=== PATIENT | female | born 1970 | race Caucasian/White ===

== ENCOUNTER 2016-11-22 13:45 | Emergency (ER) | payer MEDICAID, OTHER ==
[~2016-11-22] VITALS: Ht 162.6 cm; Wt 87.0 kg
[~2016-11-22 13:45] MED LIST: NO HOME MEDS; [UNRECOGNIZED DRUG - REMARK]
[2016-11-22 13:50] VITALS: Ht 162.6 cm; Wt 87.0 kg
--- NOTE | 2016-11-22 16:20 | RADRPT ---
PROCEDURE: CT brain without contrast CLINICAL INDICATION: Left facial pain, numbness, headache, nausea, dizziness TECHNIQUE: CT of the brain without contrast was performed on a multidetector CT scanner, with multi planar reformats. One or more of the following dose reduction techniques were used: Automated expos ure control, adjustment in mA and / or kV according to patient size, use of iterative reconstructive technique. CTDIvol = 45 mGy; DLP = 720 mGy-cm. COMPARISON: None available FINDINGS: No acute intracranial hemorrhage is identified. No extra-axial fluid collection is seen. There is no mass effect. No midline shift is identified. Ventricles - sulci are within normal limits for size and configuration. The density of the brain is within normal limits. Johnson-white differentiation is preserved. Osseous structures are unremarkable. Mastoid air cells and imaged paranasal sinuses grossly clear. IMPRESSION: No evidence of acute intracranial pathology. RPTAT: VV .Davidson Barber MD, MD Date Time Electronically viewed and signed by .Davidson Barber MD, on 11/22/2016 16:20 .O/
[2016-11-22] MEDS ORDERED: HYDR-906 PO (16:31)
[2016-11-22] MEDS ORDERED: IBUP-1542 PO (16:31)
--- NOTE | 2016-11-22 16:37 | ERD ---
ER Documentation Chief Complaint Date/Time DATE: 11/22/16 TIME: 16:34 Chief Complaint left facial pain x 1 week HPI This patient is a 38-year-old female who has had a left-sided headache and facial pain for the past week. She went to an urgent care and anterior primary care doctor today who told her to most likely trigeminal neuralgia but recommend she come into the emergency room to get a CT scan to make sure is nothing intracranially. She has had no visual changes. No vomiting. No trauma. No fever. No dizziness. She has not taken any medications for this. Pain is 8 out of 10 and is pulsating. She has also had an earache but has been seen at the urgent care in by her primary care doctor and was told she has no infection. ROS All systems reviewed and are negative except as per history of present illness. Medications Home Meds Active Scripts Hydrocodone/Acetaminophen ([place] 5-325 Tablet) 1 Each Tablet, 1 EACH PO Q6, #20 TAB Prov:LAUREN CARO PA-C 11/22/16 Ibuprofen* (Ibuprofen*) 600 Mg Tablet, 600 MG PO Q6, #30 TAB Prov:LAUREN CARO PA-C 11/22/16 Reported Medications [Marlo Pino Unk Name] No Conflict Check 05/19/13 [No Home Meds] No Conflict Check 10/31/09 Allergies Allergies: Coded Allergies: latex (Verified Allergy, Severe, RASH, 05/19/13) Penicillins (Verified Allergy, Unknown, 05/19/13) aspirin (Verified Allergy, Unknown, 05/19/13) PMhx/Soc History of Surgery: Yes (HERNIA REPAIR, KNEE, TUBAL LIGATION, MARIA ELENA, TUMOR REMOVED R BREAST) Anesthesia Reaction: No Hx Neurological Disorder: No Hx Respiratory Disorders: No Hx Cardiac Disorders: No Hx Psychiatric Problems: No Hx Miscellaneous Medical Probl: Yes (HERNIA) Hx Alcohol Use: No Hx Substance Use: No Hx Tobacco Use: No Smoking Status: Never smoker FmHx Family History: No diabetes Physical Exam Vitals Vital Signs Date Time Temp Pulse Resp B/P Pulse Ox O2 Delivery O2 Flow Rate FiO2 11/22/16 13:50 98.2 85 18 133/75 99 Physical Exam INITIAL VITAL SIGNS: Reviewed by me GENERAL: Awake, alert and oriented x 4, well appearing, nontoxic, speaking in full sentences. No acute distress HEAD: Atraumatic EYES: EOMI. PERRL. EAR: No tenderness over the mastoids bilaterally. No exudates in the canals. TMs nonerythematous. NOSE: Normal nose. THROAT: No tonilar erythema or edema. No exudates. Uvula midline. No kissing tonsils. NECK: Supple. No masses. Full range of motion. No meningismus. No midline tenderness. RESPIRATORY: Clear to auscultation bilaterally. Symmetric chest wall rise. No wheezing or rales. No accessory muscle use. CV: Regular rate and rhythm. No murmurs, rubs, or gallops. NEUROLOGIC: Normal mental status and speech. Face is symmetric. Moves all extremities equally. Motor and sensory distally intact. Normal coordination. Ambulates with a strong steady gait. [id number] within normal limits, gateman strength 5 out of 5 bilaterally, rapid alternating movements are within normal limits Procedures/MDM Patient presents with right-sided facial pain and headache. The differential diagnosis includes but is not limited to subdural hematoma, epidural hematoma, intracerebral hemorrhage, occult trauma, CVA, meningitis, encephalitis, hypertension, tension, migraine, cluster, cervical spine disease, and others. Patients is alert, oriented, well appearing, and in no distress with normal vital signs. There is no fever, tachycardia, or tachypnea. Her neurological examination is normal. CT scan is unremarkable. This is most likely trigeminal neuralgia. She was discharged with ibuprofen and [place] for pain control as well as copy of her radiology reports that she can follow with primary care. Patient counseled regarding my diagnostic impression and care plan. Prior to discharge all questions answered. Pt agrees with treatment plan and understands strict return precautions. Pt is instructed to follow up with primary care provider within 24-48 hours. Precautionary instructions provided including instructions to return to the ER if not improving or for any worsening or changing symptoms or concerns. Departure Diagnosis: Primary Impression: Trigeminal neuralgia Condition: Stable Patient Instructions: Trigeminal Neuralgia Additional Instructions: Call your primary care doctor TOMORROW for an appointment during the next 1-2 days.See the doctor sooner or return here if your condition worsens before your appointment time. LAUREN CARO PA-C Nov 22, 2016 16:37
== END 2016-11-22 17:30 | disposition home or self-care (01) ==
LOC: FTE 13:45
DX: G50.0 Trigeminal neuralgia (principal)
CPT/HCPCS: 70450; Z7502

== ENCOUNTER 2016-12-09 09:12 | Emergency (ER) | payer OTHER ==
[~2016-12-09] VITALS: Ht 162.6 cm; Wt 88.5 kg
[~2016-12-09 09:12] MED LIST changes: +ACET500T98; +HYDR-906 PO; +IBUP-1542 PO; +MEDR10TA2
[2016-12-09 09:21] VITALS: Ht 162.6 cm; Wt 88.5 kg
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
--- NOTE | 2016-12-09 10:19 | RADRPT ---
PROCEDURE: XR Chest. CLINICAL INDICATION: Chest pain TECHNIQUE: A single portable view of the chest was obtained. COMPARISON: 06/04/2007 FINDINGS: The aorta is tortuous and atherosclerotic. The cardiomediastinal silhouette is otherwise within nor mal limits. The lungs and pleural spaces are clear. The soft tissues and osseous structures demons trate benign age related senescent changes. IMPRESSION: No acute cardiopulmonary disease. RPTAT: HPNM Physician Herman Date Time Electronically viewed and signed by Martinez Pedraza Physician on 12/09/2016 10:18 /
[2016-12-09] MEDS ORDERED: FLUORESCEIN STRIP BOTH EYES ONE (10:30)
[2016-12-09] MEDS ORDERED: TETRACAINE 0.5% 4 ML OPH BOTH EYES ONE (10:30)
[2016-12-09 11:09] LABS: ABNORMAL IP MESSAGE 1; HEMATOCRIT 36.1 % (37.0-47.0); HEMOGLOBIN 10.7 g/dl (12.0-16.0); MEAN CORPUSCULAR HEMOGLOBIN 22.6 pg (29.0-33.0); MEAN CORPUSCULAR HGB CONC 29.6 g/dl (32.0-37.0); MEAN CORPUSCULAR VOLUME 76.3 fl (82.0-101.0); MEAN PLATELET VOLUME 8.6 fl (7.4-10.4); PLATELET COUNT 327 10^3/UL (140-415); RED BLOOD COUNT 4.73 10^6/ul (4.20-5.40); RED CELL DISTRIBUTION WIDTH 16.1 % (11.5-14.5); WHITE BLOOD COUNT 7.9 10^3/ul (4.8-10.8)
[2016-12-09 11:11] LABS: POSITIVE DIFF @See below
[2016-12-09 11:21] LABS: ALBUMIN/GLOBULIN RATIO 1.33; BILIRUBIN,INDIRECT 1.1 mg/dl (0-1.1); BILIRUBIN,TOTAL 1.1 mg/dl (0.2-1.3); CALCIUM 8.6 mg/dl (8.4-10.2); CREATININE 0.6 mg/dl (0.44-1.00); POTASSIUM 3.8 mmol/L (3.5-5.1)
[2016-12-09 11:34] LABS: PROTIME 13.2 Sec (12.2-14.2)
[2016-12-09 11:35] LABS: PARTIAL THROMBOPLASTIN TIME 30.4 Sec (25.0-35.0)
[2016-12-09 11:52] LABS: ANISOCYTOSIS 3+ (0-0); EOSINOPHILS % (M) 28 % (0-7); HYPOCHROMASIA 2+ (0-0); METAMYELOCYTES %M 1 % (0-0); MICROCYTOSIS 3+ (0-0); MONOCYTES % (M) 2 % (0-11); PLATELET ESTIMATE NORMAL; POIKILOCYTOSIS 1+ (0-0); POLYCHROMASIA 3+ (0-0)
[2016-12-09] MEDS ORDERED: IOHEXOL 300MG/ML 150 ML BTL ONE (12:21)
[2016-12-09] MEDS ORDERED: SOD CHLORIDE 0.9% 100 ML ONE (12:21)
--- NOTE | 2016-12-09 13:11 | RADRPT ---
PROCEDURE: CT of the orbits with contrast CLINICAL INDICATION: Pain with eye movement. TECHNIQUE: CT of the orbits was performed following the intravenous contrast administration of 100 c c of Omnipaque-300 contrast. Coronal and sagittal re-formations were provided. The administered rad iation dose was CTDI vol = 53.11 mGy, DLP = 657.32 mGy-cm. One or more of the following dose reduct ion techniques were used: Automated exposure control, Adjustment of the mA and/or kV according to pa tient size, or Use of iterative reconstruction technique. COMPARISON: There are no similar studies submitted for comparison. FINDINGS: There is no acute fracture. There is no evidence of subcutaneous air periosteal abscess. The bilateral globes are intact. There is no orbital hematoma. The bilateral optic nerves are normal in size. The bilateral extraocular muscles are within normal limits. No orbital mass is identified. There is near complete bilateral frontal, near complete bilateral ethmoid, complete left maxillary, mild right maxillary, and mild bilateral sphenoid sinus mucosal thickening. There is probably under lying inspissated secretions. There is a small right maxillary sinus air fluid level suggesting acu te sinusitis. There is a 3 mm dorsally oriented wide neck vascular protrusion of the right supraclinoid carotid ar sharon most compatible with an aneurysm (image 38 series 601). No destructive osseous lesion is identified. IMPRESSION: 1. No evidence of subcutaneous or periosteal abscess. 2. The bilateral globes are intact. 3. No orbital mass. 4. There is a 3 mm dorsally oriented wide neck vascular protrusion of the right supraclinoid caroti d artery most compatible with an aneurysm. CTA of the head as well as Neurointerventional/neurosurgi amirah evaluation is recommended. 5. Pansinus mucosal thickening as detailed above. There is a small right maxillary sinus air fluid level suggesting acute sinusitis. Further findings as detailed above. RPTAT: AA .Edison Rutledge MD, Date Time Electronically viewed and signed by .Edison Rutledge MD, MD on 12/09/2016 13:11 .F/
--- NOTE | 2016-12-09 15:26 | EN ---
Date/Time of Note Date/Time of Note DATE: 12/09/16 TIME: 15:24 ER Progress Note I was notified about this patient having pain towards her right and left eye and pressure. Previous physician before me had instructed our physician promotions assistant sales marketing to order a CT of the orbits with contrast. CT orbits does demonstrate a supraclinoid carotid artery aneurysm. I have contacted Dr. clarke at [facility] and he accepts the transfer. He states that he will evaluate the patient when they arrived in the ER. I instructed the patient will be transferred and they are okay with her plan of care. CT ORBIT: 1. No evidence of subcutaneous or periosteal abscess. 2. The bilateral globes are intact. 3. No orbital mass. 4. There is a 3 mm dorsally oriented wide neck vascular protrusion of the right supraclinoid carotid artery most compatible with an aneurysm. CTA of the head as well as Neurointerventional/neurosurgical evaluation is recommended. 5. Pansinus mucosal thickening as detailed above. There is a small right maxillary sinus air fluid level suggesting acute sinusitis. Critical Care: Excluding all billable procedures Time: 32 minutes Treatments/Evaluations: Close monitoring and treatment of unstable vital signs, cardiorespiratory, and neurologic status, while maintaining tight balance of fluid, respiratory, and cardiac interventions, multiple bedside evaluations, multiple consultations. CINDY MENDOZA DO Dec 09, 2016 15:26
[2016-12-09] MEDS ORDERED: morphine 2 MG INJ IV ONE (16:30)
[2016-12-09] MEDS ORDERED: ONDANSETRON 4 MG INJ IV STA (16:43)
[2016-12-09] MEDS ORDERED: IBUP800T25 PO (17:48)
[2016-12-09] MEDS ORDERED: AZIT250T6 PO (17:48)
[2016-12-09] MEDS ORDERED: GUAI100S PO (17:48)
[2016-12-09] MEDS ORDERED: CETI-240 PO (17:48)
[2016-12-09] MEDS ORDERED: PROM5SYR2 PO (17:48)
[2016-12-09] MEDS ORDERED: CIPR500S2 PO (17:48)
[2016-12-09] MEDS ORDERED: ACETAMINOPHEN 325 MG TAB PO ONE (18:00)
[2016-12-09 18:55] VITALS: BP 101/61; PULSE 70; RESP 18; TEMP 98.1
== END 2016-12-09 18:55 | disposition short-term general hospital (02) ==
LOC: FTE 09:12
DX: H57.12 Ocular pain, left eye (principal); I72.0 Aneurysm of carotid artery; R40.2142 Coma scale, eyes open, spontaneous, at arrival to emergency department; R40.2252 Coma scale, best verbal response, oriented, at arrival to emergency department; R40.2362 Coma scale, best motor response, obeys commands, at arrival to emergency department; R07.9 Chest pain, unspecified; Z91.040 Latex allergy status
CPT/HCPCS: 36415; 70480; 71020; 80053; 84484; 85025; 85610; 85730; 87040; 93005; 96374; 96375; J2405; Q9967; Z7502; Z7610; J2270

== ENCOUNTER 2017-02-27 18:38 | Emergency (ER) | payer OTHER ==
[~2017-02-27] VITALS: Ht 167.6 cm; Wt 94.4 kg
[~2017-02-27 18:38] MED LIST changes: -ACET500T98; +AZIT250T6 PO; +CETI-240 PO; +CIPR500S2 PO; +GUAI100S PO; +IBUP800T25 PO; -MEDR10TA2; +PROM5SYR2 PO
[2017-02-27 19:04] VITALS: Ht 167.6 cm; Wt 94.4 kg
--- NOTE | 2017-02-27 22:36 | RADRPT ---
PROCEDURE: CT Abdomen and pelvis without contrast. CLINICAL INDICATION: Abdominal pain. TECHNIQUE: CT scan of the abdomen and pelvis was performed on a multi-detector high-resolution CT scanner. Contiguous axial images were obtained from the lung bases to the ischial tuberosities wit hout intravenous contrast. Coronal and sagittal reformatted images were also obtained. Images were reviewed on the PACS workstation. One or more of the following dose reduction techniques were used: - Automated exposure control. - Adjustment of the mA and/or kV according to patient size. - Use of iterative reconstruction technique. Exam CTD/vol = 22.39 mGy. Total exam DLP = 1242.36 mGy-cm. COMPARISON: 08/23/2014. FINDINGS: Evaluation of the lung bases demonstrates no pleural or parenchymal disease. Abdomen: The liver is normal in size. There is no focal mass or dilatation of the biliary tree. T he patient is status post cholecystectomy. The spleen, pancreas and bilateral adrenal glands are wi thin normal limits. Bilateral kidneys are normal in size with no contour deforming mass identified. There is no radiopaque renal or ureteral calculus identified. There is no hydronephrosis or hydro ureter. There is no retroperitoneal adenopathy. The abdominal aorta is of normal caliber. There is prior ventral hernia repair. There is no bowel obstruction or free air. A normal appendix is identified. There are few scattered sigmoid diverticuli without evidence of diverticulitis. Th ere is no ascites. Pelvis: The bladder is unremarkable. The uterus and adnexa are within normal limits. There is no significant pelvic adenopathy or free fluid. Evaluation of the osseous structures demonstrates no suspicious lytic or blastic lesion. IMPRESSION: No acute abnormality identified within the abdomen and pelvis. Prior ventral hernia repair. Status post cholecystectomy. Few scattered sigmoid diverticuli without evidence of diverticulitis. .Epi Kilgore MD, MD Date Time Electronically viewed and signed by .Epi Kilgore MD, MD on 02/27/2017 22:36 .T/
[2017-02-27] MEDS ORDERED: SIME180C36 PO (22:41)
[2017-02-27] MEDS ORDERED: FAMO-96 PO (22:42)
--- NOTE | 2017-02-27 23:17 | ERD ---
ER Documentation Chief Complaint Chief Complaint bib self, cc: abdominal pain and bloating x 1 month HPI This is a 46-year-old female presents to the ER with multiple complaints. Patient states over the last month she has been feeling very bloated. She also complains of midabdominal pain which is sharp and she describes it as a burning cooling sensation. Patient denies any nausea vomiting or diarrhea. Patient is also complaining of feeling tired and dizzy. Patient denies any fevers or chills. She denies any urinary frequency or dysuria. She denies any chest pain shortness of breath. Patient states that over the last few weeks she has been noticing that she has been gaining a lot of weight, however is not eating more food. ROS 12 point review of systems was done, all negative except per HPI. Medications Home Meds Active Scripts Famotidine* (Pepcid*) 20 Mg Tablet, 20 MG PO BID for 4 Days, TAB Prov:DANY REYES 02/27/17 Simethicone (Simethicone) 180 Mg Capsule, 360 MG PO BID for 5 Days, CAP Prov:DANY REYES 02/27/17 Hydrocodone/Acetaminophen ([place] 5-325 Tablet) 1 Each Tablet, 1 EACH PO Q6, #20 TAB Prov:LAUREN CARO PA-C 11/22/16 Ibuprofen* (Ibuprofen*) 600 Mg Tablet, 600 MG PO Q6, #30 TAB Prov:LAUREN CARO PA-C 11/22/16 Reported Medications Cetirizine Hcl* (Cetirizine Hcl*) 10 Mg Tablet, 10 MG PO DAILY, #30 TAB 12/09/16 Guaifenesin (Tussin Dm) 100 Mg/5 Ml Syrup, 1 TSP PO QID 12/09/16 Promethazine HCl/Codeine (Prometh-Codein 6.25-10 mg/5 ml) 5 Ml Syrup, 5 ML PO TID 12/09/16 Azithromycin* (Azithromycin*) 250 Mg Tablet, 250 MG PO DAILY, #4 TAB 12/09/16 Ibuprofen* (Ibuprofen*) 800 Mg Tab, 800 MG PO TID, TAB 12/09/16 Ciprofloxacin (Ciprofloxacin) 500 Mg/5 Ml Leslie.mc.rec, 500 MG PO BID, #14 TAB 12/09/16 [Musle Elaxer Unk Name] No Conflict Check 05/19/13 [No Home Meds] No Conflict Check 10/31/09 Allergies Allergies: Coded Allergies: latex (Verified Allergy, Severe, RASH, 05/19/13) Penicillins (Verified Allergy, Unknown, 05/19/13) aspirin (Verified Allergy, Unknown, 05/19/13) PMhx/Soc History of Surgery: Yes (HERNIA REPAIR, KNEE, TUBAL LIGATION, MARIA ELENA, TUMOR REMOVED R BREAST) Anesthesia Reaction: No Hx Neurological Disorder: No Hx Respiratory Disorders: No Hx Cardiac Disorders: No Hx Psychiatric Problems: No Hx Miscellaneous Medical Probl: Yes (HERNIA) Hx Alcohol Use: No Hx Substance Use: No Hx Tobacco Use: No Smoking Status: Never smoker Physical Exam Vitals Vital Signs Date Time Temp Pulse Resp B/P Pulse Ox O2 Delivery O2 Flow Rate FiO2 02/27/17 19:04 98.5 92 18 157/90 100 Physical Exam GENERAL: The patient is well developed and appropriate for usual state of health , in no apparent distress. HEENT: Atraumatic. Conjunctivae are pink. Pupils equal, round, and reactive to light. Extraocular muscles are grossly intact. Bilateral tympanic membranes are clear with no evidence of erythema, effusion or dulling of the light reflex. The oropharynx is clear with no erythema or exudates. NECK: C-spine is soft and supple. There is no cervical lymphadenopathy. CHEST: Clear to auscultation bilaterally. There are no rales, wheezes or rhonchi. HEART: Regular rate and rhythm. No murmurs, clicks, rubs or gallops. ABDOMEN: Soft, nontender and nondistended. Good bowel sounds. No rebound or guarding. No gross peritonitis. No gross organomegaly or masses. No Richards sign or McBurney point tenderness. BACK: No midline or flank tenderness. EXTREMITIES: Equal pulses bilaterally. There is no peripheral clubbing, cyanosis or edema. No focal swelling or erythema. Full range of motion. Grossly neurovascularly intact. NEURO: Alert and oriented. Cranial nerves II through XII are intact. Motor strength in all 4 extremities with 5/5 strength. Sensation grossly intact. Normal speech and gait. SKIN: There is no apparent rash or petechia. The skin is warm and dry. Result Diagram: 02/27/17220302/27/172203 Results 24 hrs Laboratory Tests Test 02/27/17:30 02/27/17 22:04 Urine Color YELLOW Urine Clarity CLOUDY Urine pH 7.0 Urine Specific [place] 1.018 Urine Ketones NEGATIVEmg/dL Urine Nitrite NEGATIVEmg/dL Urine Bilirubin NEGATIVEmg/dL Urine Urobilinogen NEGATIVEmg/dL Urine Leukocyte Esterase NEGATIVELeu/ul Urine Microscopic RBC 1/HPF Urine Microscopic WBC 1/HPF Urine Squamous Epithelial Cells FEW/HPF Urine Amorphous Crystals FEW/HPF Urine Mucus FEW/HPF Urine Hemoglobin NEGATIVEmg/dL Urine Glucose NEGATIVEmg/dL Urine Total Protein NEGATIVEmg/dl White Blood Count 6.510^3/ul Red Blood Count 4.4110^6/ul Hemoglobin 10.1g/dl Hematocrit 33.1% Mean Corpuscular Volume 75.1fl Mean Corpuscular Hemoglobin 22.9pg Mean Corpuscular Hemoglobin Concent 30.5g/dl Red Cell Distribution Width 17.1% Platelet Count 08569^3/UL Mean Platelet Volume 8.5fl Neutrophils % 54.9% Lymphocytes % 32.6% Monocytes % 6.2% Eosinophils % 5.2% Basophils % 0.9% Nucleated Red Blood Cells % 0.0/100WBC Neutrophils # 3.610^3/ul Lymphocytes # 2.110^3/ul Monocytes # 0.410^3/ul Eosinophils # 0.310^3/ul Basophils # 0.110^3/ul Nucleated Red Blood Cells # 0.010^3/ul Sodium Level 141mmol/L Potassium Level 4.3mmol/L Chloride Level 107mmol/L Carbon Dioxide Level 26mmol/L Anion Gap 12 Blood Urea Nitrogen 12mg/dl Creatinine 0.49mg/dl Glucose Level 88mg/dl Calcium Level 9.4mg/dl Total Bilirubin 0.8mg/dl Direct Bilirubin 0.00mg/dl Indirect Bilirubin 0.8mg/dl Aspartate Amino Transf (AST/SGOT) 20IU/L Alanine Aminotransferase (ALT/SGPT) 28IU/L Alkaline Phosphatase 84IU/L Troponin I < 0.012ng/ml Total Protein 7.3g/dl Albumin 3.9g/dl Globulin 3.40g/dl Albumin/Globulin Ratio 1.14 Lipase 143U/L Thyroid Stimulating Hormone (TSH) 11.300MIU/L Procedures/MDM EKG was done [address] elevation or T-wave inversion. This EKG was read by Dr. Galicia This is a 38-year-old female presents here with multiple complaints. At this time suspicion for acute abdomen is low. Patient's abdominal examination is completely benign. She is afebrile and extremely well-appearing. Aggressive patient's fatigue and weight gain, it may be related to patient's hypothyroidism as her TSH is 11. Suspicion for for Myxedema coma islow. Patient has had these symptoms for over a month now, she was treated with simethicone and with famotidine. Please follow-up with her primary care doctor within 1-2 days return to ER sooner if symptoms worsen. My medical decision making sure with the patient she understands and agrees with plan. Departure Diagnosis: Primary Impression: Bloating Additional Impression: Hypothyroid Condition: Stable Patient Instructions: Abdominal Pain, Unknown Cause, (Female) Additional Instructions: Call your primary care doctor TOMORROW for an appointment during the next 1-2 days.See the doctor sooner or return here if your condition worsens before your appointment time. DANY REYES Feb 27, 2017 23:17
[2017-02-28 00:27] VITALS: BP 100/58; PULSE 80; RESP 20; TEMP 98.8
== END 2017-02-28 00:20 | disposition home or self-care (01) ==
LOC: FTE 18:38
DX: E03.9 Hypothyroidism, unspecified (principal); R07.9 Chest pain, unspecified; Z91.040 Latex allergy status
CPT/HCPCS: 36415; 74176; 80053; 81001; 83690; 84443; 84484; 85025; Z7502

== ENCOUNTER 2017-05-30 16:48 | Emergency (ER) | END 2017-05-31 05:30 | disposition home or self-care (01) ==

== ENCOUNTER 2017-08-14 00:08 | Emergency (ER) | END 2017-08-14 04:31 | disposition home or self-care (01) ==

== ENCOUNTER 2018-07-04 13:27 | Inpatient (IN) | payer OTHER ==
[~2018-07-04] VITALS: Ht 172.7 cm; Wt 95.2 kg
[~2018-07-04 13:27] MED LIST changes: +ALBU18HF INHALATION; +ALBU2.5V3 NEB; -AZIT250T6 PO; -CETI-240 PO; -CIPR500S2 PO; +FER325 PO; -GUAI100S PO; +HYDR-843 PO; -HYDR-906 PO; -IBUP-1542 PO; +IBUP-1545 PO; -IBUP800T25 PO; +LEVO25TA PO; +LORA0.5T PO; +MULT1TAB54 PO; -NO HOME MEDS; -PROM5SYR2 PO; +SIMV20TA PO; +TRAM50TA2 PO; -[UNRECOGNIZED DRUG - REMARK]
[2018-07-04] MEDS ORDERED: FERR325T5 PO (14:25)
[2018-07-04] MEDS ORDERED: OMEG-135 PO (14:26)
[2018-07-04] MEDS ORDERED: FENO145T37 PO (14:27)
[2018-07-04] MEDS ORDERED: OMEG1CAP30 PO (14:27)
[2018-07-04] MEDS ORDERED: TOPI100T11 PO (14:27)
[2018-07-04] MEDS ORDERED: ACETAMINOPHEN 325 MG TAB PO PRN (16:30)
[2018-07-04] MEDS ORDERED: ONDANSETRON 4 MG INJ IV PRN (16:30)
[2018-07-04] MEDS ORDERED: CLOPIDOGREL 75 MG TAB PO ONE (16:30)
[2018-07-04] MEDS ORDERED: NACL 0.9% 3 ML SYG IV SCH (17:00)
--- NOTE | 2018-07-04 17:51 | ERD ---
ER Documentation Chief Complaint Chief Complaint WEAKNESS ; TROUBLED TALKING; NO FACAIL DROOP; NO NUMBNESS HPI Patient is a 48-year-old female with seizures who presents with weakness. Please note the history and physical exam is limited secondary to the patient being nonverbal at this time. The patient has had weakness and difficulty speaking per the daughter. It started a few days ago. She was seen by Dr. Fletcher for evaluation and was sent to the emergency department. She has a history of "mini strokes" per the daughter. Upon review of old medical records the patient has multiple visits for various complaints. She has had no treatment as of yet. ROS All systems reviewed and are negative except as per history of present illness. Medications Home Meds Active Scripts Levothyroxine Sodium* (Synthroid*) 25 Mcg Tablet, 25 MCG PO BEFORE BREAKFAST, #30 TAB Prov:ADAL PARDO DO 05/31/17 Reported Medications Topiramate* (Topiramate*) 100 Mg Tablet, 100 MG PO BID, TAB 07/04/18 Phyllis-3 Fatty Acids/Fish Oil (Phyllis 3 Fish Oil Softgel) 1 Each Capsule.dr, 2 EACH PO BID 07/04/18 Fenofibrate Nanocrystallized* (Fenofibrate*) 145 Mg Tablet, 145 MG PO DAILY, TAB 07/04/18 Ferrous Sulfate (Ferrous Sulfate) 325 Mg Tablet.dr, 325 MG PO DAILY 07/04/18 Simvastatin* (Zocor*) 20 Mg Tablet, 20 MG PO QHS, #30 TAB 05/31/17 Lorazepam* (Lorazepam*) 0.5 Mg Tablet, 0.5 MG PO HS PRN for ANXIETY, TAB 05/31/17 Discontinued Reported Medications Albuterol Sulfate* (Ventolin HFA*) 18 Gm Hfa.aer.ad, 2 PUFF INHALATION Q4H, #1 INHALER 05/31/17 Albuterol Sulfate* (Albuterol Sulfate* Neb) 0.083%-3 Ml Neb, 1.25 MG NEB TID PRN for WHEEZING AND SOB, #30 VIAL 05/31/17 Hydroxyzine Hcl* (Hydroxyzine Hcl*) 25 Mg Tablet, 25 MG PO BID PRN for ITCHING, #30 TAB 05/31/17 Multivitamin with Iron (Daily Jj with Iron) 1 Each Tablet, 1 EACH PO, TAB 05/31/17 Ibuprofen* (Ibuprofen*) 800 Mg Tab, 800 MG PO TID, TAB 12/09/16 Discontinued Scripts Tramadol HCl (Tramadol HCl) 50 Mg Tablet, 50 MG PO Q4 PRN for PAIN, #20 TAB Prov:REYMUNDO MANSFIELD 08/14/17 Allergies Allergies: Coded Allergies: latex (Verified Allergy, Severe, RASH, 05/19/13) Penicillins (Verified Allergy, Unknown, 05/19/13) aspirin (Verified Allergy, Unknown, 05/19/13) PMhx/Soc History of Surgery: Yes (jorge, R wrist, R knee, hernia) Anesthesia Reaction: No Hx Neurological Disorder: Yes (brain aneurysm) Hx Respiratory Disorders: Yes (asthma) Hx Cardiac Disorders: No Hx Psychiatric Problems: No Hx Miscellaneous Medical Probl: Yes (HERNIA) Hx Alcohol Use: No Hx Substance Use: No Hx Tobacco Use: No Smoking Status: Never smoker FmHx Family History: No diabetes Physical Exam Vitals Vital Signs Date Temp Pulse Resp B/P (MAP) Pulse Ox O2 O2 Flow FiO2 Time Delivery Rate 07/04/18 99.3 58 18 105/62 100 Room Air 15:37 (76) 07/04/18 Nasal 2 14:14 Cannula 07/04/18 99.3 67 19 125/71 100 13:33 (89) Physical Exam Const: No acute distress Head: Atraumatic Eyes: Normal Conjunctiva ENT: Normal External Ears, Nose and Mouth. Neck: Full range of motion. No meningismus. Resp: Clear to auscultation bilaterally Cardio: Regular rate and rhythm, no murmurs Abd: Soft, non tender, non distended. Normal bowel sounds Skin: No petechiae or rashes Back: No midline or flank tenderness Ext: No cyanosis, or edema Neur: Awake, aphasia at this time, diffuse weakness of the upper and lower extremities but not one side more than the other, no obvious facial droop Result Diagram: 07/04/18 1405 07/04/18 1405 Results 24 hrs Laboratory Tests Test 07/04/18 13:55 07/04/18 14:00 07/04/18 14:05 Urine Color YELLOW Urine Clarity CLOUDY Urine pH 8.0 Urine Specific [place] 1.012 Urine Ketones NEGATIVE mg/dL Urine Nitrite NEGATIVE mg/dL Urine Bilirubin NEGATIVE mg/dL Urine Urobilinogen NEGATIVE mg/dL Urine Leukocyte Esterase NEGATIVE Amena/ul Urine Microscopic RBC 6 /HPF Urine Microscopic WBC 0 /HPF Urine Squamous Epithelial Cells FEW /HPF Urine Amorphous Crystals MODERATE /HPF Urine Mucus FEW /HPF Urine Hemoglobin NEGATIVE mg/dL Urine Glucose NEGATIVE mg/dL Urine Total Protein NEGATIVE mg/dl Urine Opiates Screen Negative Urine Barbiturates Negative Urine Amphetamines Screen Negative Urine Benzodiazepines Screen Negative Urine Cocaine Screen Negative Urine Cannabinoids Negative POC Beta HCG, Qualitative NEGATIVE White Blood Count 5.5 10^3/ul Red Blood Count 4.50 10^6/ul Hemoglobin 11.5 g/dl Hematocrit 36.9 % Mean Corpuscular Volume 82.0 fl Mean Corpuscular Hemoglobin 25.6 pg Mean Corpuscular 31.2 g/dl Hemoglobin Concent Red Cell Distribution Width 21.0 % Platelet Count 318 10^3/UL Mean Platelet Volume 8.9 fl Immature Granulocytes % 0.200 % Neutrophils % 57.1 % Lymphocytes % 31.1 % Monocytes % 7.6 % Eosinophils % 2.9 % Basophils % 1.1 % Nucleated Red Blood Cells % 0.0 /100WBC Immature Granulocytes # 0.010 10^3/ul Neutrophils # 3.1 10^3/ul Lymphocytes # 1.7 10^3/ul Monocytes # 0.4 10^3/ul Eosinophils # 0.2 10^3/ul Basophils # 0.1 10^3/ul Nucleated Red Blood Cells # 0.0 10^3/ul Prothrombin Time 13.1 Sec Prothrombin Time Ratio 1.0 INR International 0.98 Normalized Ratio Activated Partial Thromboplast 34.5 Sec Time Sodium Level 143 mmol/L Potassium Level 3.9 mmol/L Chloride Level 112 mmol/L Carbon Dioxide Level 23 mmol/L Anion Gap 8 Blood Urea Nitrogen 10 mg/dl Creatinine 0.66 mg/dl Est Glomerular Filtrat > 60 mL/min Rate mL/min Glucose Level 90 mg/dl Hemoglobin A1c 5.1 % Calcium Level 9.5 mg/dl Troponin I < 0.012 ng/ml Triglycerides Level 101 mg/dl Cholesterol Level 117 mg/dl LDL Cholesterol, Calculated 45 mg/dl HDL Cholesterol 52 mg/dl Cholesterol/HDL Ratio 2.2 RATIO Procedures/MDM CT brain read by radiology. Chest x-ray read by radiology. EKG read by me: Rate/Rhythm: Regular rate and rhythm at a normal rate Intervals: Normal Impression: No evidence of ischemia or arrhythmia Patient is a 48-year-old female who presents with a aphasia and concern for stroke. She is outside the window for TPA or mechanical retrieval as the onset was a few days ago. She is allergic to aspirin so was given Plavix when she passed a swallow evaluation. The patient will be admitted to the care of Dr. Duval given her insurance. She will be admitted to a telemetry inpatient bed for further stroke workup. I doubt intracranial mass or hemorrhage. Departure Diagnosis: Primary Impression: Stroke CVA mechanism: unspecified Qualified Codes: I63.9 - Cerebral infarction, unspecified Additional Impression: Acute weakness Condition: SHANEKA Morales MD Jul 04, 2018 17:51
[2018-07-04 17:52] VITALS: Ht 172.7 cm; Wt 95.2 kg
[2018-07-04] MEDS ORDERED: LORAZEPAM 0.5 MG TAB PO PRN (18:00)
[2018-07-04] MEDS ORDERED: ZOLPIDEM 5 MG TAB PO PRN (18:00)
[2018-07-04 20:00] VITALS: BP 118/58; PULSE 55; PULSE 58; RESP 16
[2018-07-04] MEDS: TOPIRAMATE 100 MG TAB PO SCH (22:47)
[2018-07-04] MEDS: ATORVASTATIN 10 MG TAB PO SCH (22:47)
[2018-07-05] VITALS (12 sets, daily range): BP systolic 91–121; BP diastolic 53–62; PULSE 57–69; RESP 16–20
[2018-07-05] MEDS: LEVOTHYROXINE 25 MCG TAB PO SCH (06:38)
--- NOTE | 2018-07-05 09:19 | PDOCDIS ---
Discharge Instructions CONDITION [id number] Patient Condition: [id number] Good HOME CARE INSTRUCTIONS: [id number] Diet Instructions: [id number] FOLLOW UP/APPOINTMENTS Follow-up Plan pcp [address] Mullins 1 week DARIA ALY MD Jul 05, 2018 09:19
[2018-07-05] MEDS ORDERED: INFLUENZA VIRUS VACCINE 0.5 ML (DISPENSING) IM* ONE (10:00)
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
[2018-07-05] MEDS: TOPIRAMATE 100 MG TAB PO SCH ×2 (10:58→20:37)
[2018-07-05] MEDS: FENOFIBRATE 145 MG TAB PO SCH (10:58)
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
[2018-07-05] MEDS: ATORVASTATIN 10 MG TAB PO SCH (20:37)
[2018-07-06] VITALS (8 sets, daily range): BP systolic 97–120; BP diastolic 51–63; PULSE 56–76; RESP 18–20
[2018-07-06] MEDS: LEVOTHYROXINE 25 MCG TAB PO SCH (06:04)
--- NOTE | 2018-07-06 07:11 | EEG ---
EEG NOTE Report Details DATE OF TEST: 07/05/18 HISTORY: The patient is a 48-year-old F who presents with dysphasia. This EEG is requested to evaluate for seizures. SEDATION: None. CONDITIONS OF RECORDING: This EEG was recorded digitally on the [employer] machine, using the International 10-20 System of electrodes plus anterior temporals and [place]z. STATES SAMPLED: Wakefulness and drowsiness. FINDINGS: During wakefulness, there is a 9 Hz posterior dominant rhythm, which attenuates normally with eye opening. There is a normal cofsjxge-ub-wlystkbxd frequency-amplitude gradient. The remainder of the awake background is normal. Photic stimulation does not elicit any definite driving responses or epileptiform discharges. Hyperventilation was not performed. The patient became drowsy but did not pass into sleep. No asymmetries, focal abnormalities or epileptiform discharges were seen. Incidentally, the single-channel laboratory monitor did not reveal any obvious cardiac arrhythmia. IMPRESSION: Normal electroencephalogram during wakefulness and drowsiness. RAVINDRA PENA Jul 06, 2018 07:11
[2018-07-06] MEDS: FENOFIBRATE 145 MG TAB PO SCH (08:15)
[2018-07-06] MEDS: TOPIRAMATE 100 MG TAB PO SCH (08:15)
[2018-07-06] MEDS ORDERED: HYDROCODONE/APAP (5/325) TAB PO PRN (08:30)
[2018-07-06] MEDS ORDERED: ONDANSETRON 4 MG INJ IV PRN (08:30)
--- NOTE | 2018-07-06 09:15 | CONS ---
Assessment/Plan Assessment/Plan Hospital Course 48 F w/ reported Hx of TBI c/b epilepsy...who presents for evaluation of persistent dysphasia and generalized weakness. The clinical picture suggests a decompensated psychiatric illness. MRI brain is reassuringly negative for acute intracranial pathology... Complex partial seizure is unlikely; EEG was normal. P: OK to continue Topamax per ops for now Ativan iv prn prolonged seizure or cluster PT/OT/ST as necessary Other management and supportive care per primary Will follow clinically Consultation Date/Type/Reason Admit Date/Time Jul 04, 2018 at 16:16 Type of Consult Neurology Reason for Consultation dysarthria; eval for stroke Requesting Provider: DARIA ALY MD Date/Time of Note DATE: 07/06/18 TIME: 09:15 24 HR Interval Summary Free Text/Dictation Continues acute care. S/p EEG. Exam Vital Signs Vitals Vital Signs Date Temp Pulse Resp B/P (MAP) Pulse Ox O2 O2 Flow FiO2 Time Delivery Rate 07/06/18 98.5 61 20 97/54 (68) 96 Room Air 07:41 07/04/18 2 14:14 Intake and Output 07/05/18 07/05/18 07/06/18 1515:00 23:00 07:00 IntakeIntake Total 250 ml 240 ml BalanceBalance 250 ml 240 ml Exam Exam PE: Gen Appearance: No Apparent Distress HEENT: Normocephalic Cardiovascular: Regular rate Lungs: Clear bilaterally Abdomen: Soft Extremities: Dry NE: The patient was alert and oriented. Speech hypophonic and dysfluent. The pt had difficulty with short term recall and word finding. Fund of knowledge was normal. Pupils were equal and reactive to light. There was no afferent pupillary defect. Visual junior were normal. Funduscopic examination was limited. Extra-ocular movements were full. Ptosis was absent. There was no nystagmus. Facial sensation was normal. Face was symmetric with normal strength. Hearing was intact. Palate movements were normal. Neck strength was normal. There was normal tongue bulk and speed of movement. Tone was normal. Muscle bulk was normal. I did not see fasciculations. Arms and legs were weak on the L Vibration sensation and sensation to light touch was diminished on the L. Temperature and pinprick sensation was normal. Rapid alternating movements were normal. There was no dysmetria. There was no intention tremor. Gait was deferred due to bedrest. Arm and leg reflexes were 2+ and symmetric. Dye's sign was absent. Plantar responses were flexor. KULDEEP FITCH NP Jul 06, 2018 09:15 RAVINDRA PENA Jul 07, 2018 07:01
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
== END 2018-07-06 19:28 | DRG 880 ==
LOC: E/R 13:27 → TEL 16:16
PROVIDERS: ADMIT Internal Medicine; ATTEND Internal Medicine
DX: F41.9 Anxiety disorder, unspecified (principal); G40.909 Epilepsy, unspecified, not intractable, without status epilepticus; E03.9 Hypothyroidism, unspecified; E78.5 Hyperlipidemia, unspecified; R47.89 Other speech disturbances; Z87.820 Personal history of traumatic brain injury
CPT/HCPCS: 36415; 70450; 70551; 71045; 80048; 80061; 80307; 81001; 81025; 83036; 84484; 85025; 85610; 85730; 90686; 92507; 92523; 92526; 92610; 93005; 93880; 95819; 97116; 97162; 97530

== ENCOUNTER 2018-09-03 15:37 | Emergency (ER) | payer OTHER ==
[~2018-09-03] VITALS: Wt 89.0 kg
[~2018-09-03 15:37] MED LIST changes: -ALBU18HF INHALATION; -ALBU2.5V3 NEB; +FENO145T37 PO; -FER325 PO; +FERR325T5 PO; -HYDR-843 PO; -IBUP-1545 PO; -MULT1TAB54 PO; +OMEG1CAP30 PO; +TOPI100T11 PO; -TRAM50TA2 PO
[2018-09-03] MEDS ORDERED: DIPHENHYDRAMINE 50 MG INJ IV STA (18:39)
[2018-09-03] MEDS ORDERED: SOD CHLORIDE 0.9% 1,000 ML IV STA (18:39)
[2018-09-03] MEDS ORDERED: PROCHLORPERAZINE 10 MG INJ IV STA (18:39)
--- NOTE | 2018-09-03 19:08 | ERD ---
ER Documentation Chief Complaint Chief Complaint LEFT SIDE LOU, SPEECH HPI This is a 48-year-old female who presents with family member. The patient has a history of traumatic brain injury with residual cognitive and speech deficits. For the past 6 months the patient is having difficulty speaking where she provides staccato sentences. Patient has almost daily headaches that have been unchanged over the last 6 months. The patient was seen here in June and had MRI imaging because of the speech issues. MRI was reviewed and shows no acute process. She does note a history of aneurysm but denies any sudden onset of headache, no thunderclap headache. No focal neurologic deficits. Patient states that her eyes felt puffy and blurred vision bilaterally. She went to an urgent care and they sent her to the emergency room. Her headache is bandlike, bilateral and similar to headaches in the past. Patient states that the du ration of headache and intensity is slightly worse than usual. She follows with a neurologist but has not seen that provider in some time. ROS All systems reviewed and are negative except as per history of present illness. Medications Home Meds Active Scripts Prkgihzpll-Ykbatdhmirddi-Ioladxkv* (Fioricet*) 50-300-40 Mg Capsule, 1 CAP PO Q6 PRN for HEADACHE, #20 CAP Prov:SHASHI HO MD 09/03/18 Levothyroxine Sodium* (Synthroid*) 25 Mcg Tablet, 25 MCG PO BEFORE BREAKFAST, #30 TAB Prov:ADAL PARDO DO 05/31/17 Reported Medications Topiramate* (Topiramate*) 100 Mg Tablet, 100 MG PO BID, TAB 07/04/18 [place]-3 Fatty Acids/Fish Oil ([place] 3 Fish Oil Softgel) 1 Each Capsule.dr, 2 EACH PO BID 07/04/18 Fenofibrate Nanocrystallized* (Fenofibrate*) 145 Mg Tablet, 145 MG PO DAILY, TAB 07/04/18 Ferrous Sulfate (Ferrous Sulfate) 325 Mg Tablet.dr, 325 MG PO DAILY 07/04/18 Simvastatin* (Zocor*) 20 Mg Tablet, 20 MG PO QHS, #30 TAB 05/31/17 Lorazepam* (Lorazepam*) 0.5 Mg Tablet, 0.5 MG PO HS PRN for ANXIETY, TAB 05/31/17 Allergies Allergies: Coded Allergies: latex (Verified Allergy, Severe, RASH, 09/03/18) Penicillins (Verified Allergy, Unknown, 09/03/18) aspirin (Verified Allergy, Unknown, 09/03/18) PMhx/Soc History of Surgery: Yes (carpal tunnel on L hand, hernia repair) Anesthesia Reaction: No Hx Neurological Disorder: No (seizure, aneurysm) Hx Respiratory Disorders: No Hx Cardiac Disorders: No Hx Psychiatric Problems: No Hx Miscellaneous Medical Probl: Yes (See technical record) Hx Alcohol Use: No Hx Substance Use: No Hx Tobacco Use: No FmHx Family History: No diabetes Physical Exam Vitals Vital Signs Date Temp Pulse Resp B/P (MAP) Pulse Ox O2 O2 Flow FiO2 Time Delivery Rate 09/03/18 76 16 121/70 100 Room Air 19:24 (87) 09/03/18 98.1 86 18 137/64 99 15:46 (88) Physical Exam General: Tearful, anxious, staccato speech Head: Normocephalic, atraumatic. Eyes: Pupils equally reactive, EOM intact, no ptosis, no field cuts ENT: Moist mucous membranes Neck: Supple, no lymphadenopathy Respiratory: Lungs clear bilaterally, no distress Cardiovascular: RRR, no murmurs, rubs, or gallops Abdominal: Soft, non-tender, non-distended, no peritoneal signs : Deferred MSK: No edema, no unilateral swelling, 5/5 strength Neurologic: Limited exam given poor participation but no focal deficits, stacca to speech, no new focal deficits per patient report Skin: No rash Psych: Normal mood Result Diagram: 09/03/18191209/03/181912 Results 24 hrs Laboratory Tests Test 09/03/18 19:13 White Blood Count 5.6 10^3/ul Red Blood Count 4.44 10^6/ul Hemoglobin 12.4 g/dl Hematocrit 38.8 % Mean Corpuscular Volume 87.4 fl Mean Corpuscular Hemoglobin 27.9 pg Mean Corpuscular Hemoglobin Concent 32.0 g/dl Red Cell Distribution Width 15.9 % Platelet Count 340 10^3/UL Mean Platelet Volume 9.1 fl Immature Granulocytes % 0.200 % Neutrophils % 53.5 % Lymphocytes % 31.5 % Monocytes % 7.3 % Eosinophils % 5.9 % Basophils % 1.6 % Nucleated Red Blood Cells % 0.0 /100WBC Immature Granulocytes # 0.010 10^3/ul Neutrophils # 3.0 10^3/ul Lymphocytes # 1.8 10^3/ul Monocytes # 0.4 10^3/ul Eosinophils # 0.3 10^3/ul Basophils # 0.1 10^3/ul Nucleated Red Blood Cells # 0.0 10^3/ul Sodium Level 145 mmol/L Potassium Level 3.6 mmol/L Chloride Level 116 mmol/L Carbon Dioxide Level 19 mmol/L Anion Gap 10 Blood Urea Nitrogen 16 mg/dl Creatinine 0.77 mg/dl Est Glomerular Filtrat Rate mL/min > 60 mL/min Glucose Level 86 mg/dl Calcium Level 9.9 mg/dl Current Medications Medications Dose Sig/Carmelo Start Time Status Last (Trade) Ordered Route PRN Stop Time Admin Dose Reason Admin Sodium 1,000 ml @ Q1H STAT 09/03/18 DC 09/03/18 Chloride 1,000 mls/hr IV 18:39 19:01 09/03/18 19:38 10 mg ONCE STAT 09/03/18 DC 09/03/18 Prochlorperaz IV 18:39 19:01 ine 09/03/18 18:40 (Compazine Inj) 25 mg ONCE STAT 09/03/18 DC 09/03/18 Diphenhydrami IV 18:39 19:01 ne HCl 09/03/18 18:40 (Benadryl) IV Flush 10 ml STK-MED 09/03/18 DC 09/03/18 (NS 10 ml) ONCE .ROUTE 19:51 19:51 09/03/18 19:52 Sodium 100 ml @ ud STK-MED 09/03/18 DC 09/03/18 Chloride ONCE .ROUTE 19:51 19:51 09/03/18 19:52 Iohexol 100 ml @ ud STK-MED 09/03/18 DC 09/03/18 ONCE .ROUTE 19:51 19:51 09/03/18 19:52 Lorazepam 1 mg ONCE ONCE 09/03/18 DC (Ativan) IV 21:30 09/03/18 21:31 Procedures/MDM EKG, MONITORS, & DIAGNOSTIC IMAGING: CT brain: IMPRESSION: 1. No intracranial hemorrhage, hydrocephalus, or cerebral infarction. 2. No interval change. RPTAT: EE CTA head and neck: IMPRESSION: 1. No intracranial thrombosis or occlusion identified. 2. No evidence for dissection. 3. No hemodynamically significant carotid bulb stenosis. 3. Unchanged unruptured aneurysm at the origin of the right posterior communicating artery. 4. No vascular malformation. NASCET CAROTID STENOSIS CRITERIA (distal normal appearing ICA as denominator for measurement): 0%-none, 1-49%-mild, 50-70%-moderate, 70-89%-severe, 90-99%-critical. RPTAT: VK LAB INTERPRETATION: I reviewed the laboratory testing and it shows [no evidence of acute process] MEDICAL DECISION MAKING: The patient has a subacute presentation of her headache and speech issues. The patient is very tearful and anxious which is likely contributing to her presentation today. Based on the patient's history and physical exam as well as chart review the patient does not appear to have any new neurologic issues. Her headache is consistent with baseline headaches. While the patient does have a known history of aneurysm this is not consistent with aneurysm rupture. She denies any thunderclap headache, sudden onset of headache and has no new focal neurologic deficits. I believe stress and anxiety is playing a large role in her presentation. Consider possible underlying migraine headache secondary to traumatic brain injury history. I explained to the patient that we may not have an answer to her subacute and chronic issues but we will obtain CT imaging. Based on the patient's MRI imaging in June CTA may be of use for outpatient follow-up. I have a low clinical concern for ruptured aneurysm though CTA of the head and neck would be appropriate to help the patient with her follow-up and further work-up for this chronic issue. Do not believe the patient requires a lumbar puncture to diagnose possible ruptured aneurysm. ER COURSE: * IV fluids Compazine and Benadryl provided * The patient apparently refused IV fluids and benzodiazepines. Headache is moderately improved. * Laboratory testing and diagnostic imaging is unrevealing. At this point I feel the patient can be safely discharged home. She has been directed to her neurologist. * Patient has chronic issues with no evidence of acute emergent medical condi tion. CONSULTATION: [None] DISPOSITION PLAN: The patient does not have an identifiable emergent medical condition that warrants inpatient hospitalization at this time. The patient is deemed safe for discharge with outpatient follow-up. We discussed follow up with the patient's primary care doctor within 24 to 48 hours as needed. We also discussed return to the emergency room for worsening symptoms or worsening condition. Outpatient referral: Neuro Discharge Medications: Fioricet Departure Diagnosis: Primary Impression: Headache Headache type: unspecified Headache chronicity pattern: chronic headache Intractability: not intractable Qualified Codes: R51 - Headache Additional Impression: Headache, chronic daily Condition: Stable SHASHI HO MD September 03, 2018 19:08
[2018-09-03] MEDS ORDERED: SOD CHLORIDE 0.9% 100 ML ONE (19:51)
[2018-09-03] MEDS ORDERED: IOHEXOL 100 ML ONE (19:51)
[2018-09-03] MEDS ORDERED: LORAZEPAM 2 MG INJ IV ONE (21:30)
[2018-09-03] MEDS ORDERED: BUTA1CAP38 PO (23:07)
[2018-09-03] MEDS ORDERED: ATOR20TA65 PO (23:14)
[2018-09-03 23:34] VITALS: BP 126/70; PULSE 72; RESP 16
== END 2018-09-03 23:37 | disposition home or self-care (01) ==
LOC: E/R 15:37
DX: R51 Headache (principal)
CPT/HCPCS: 70450; 70496; 70498; 80048; 85025; 96374; 96375; J0780; J1200; J7030; Q9967; Z7502; Z7610; J2060